=== PATIENT | male | born 1960 | race Caucasian/White ===

== ENCOUNTER 2017-11-18 19:00 | Emergency (ER) | payer BC, OTHER ==
[2017-11-18] MEDS ORDERED: Lidocaine 1% PF 5 ML VIAL ONE (19:30)
[2017-11-18] MEDS ORDERED: Bacitracin Zinc 1 Packet ONE (19:44)
[2017-11-18] MEDS ORDERED: Adacel (T-DAP) 0.5 ML VIAL ONE (20:12)
== END 2017-11-18 20:16 | disposition home or self-care (01) ==
LOC: SCSER 19:00
DX: S61.012A Laceration without foreign body of left thumb without damage to nail, initial encounter (principal); I10 Essential (primary) hypertension; Z23 Encounter for immunization; W27.0XXA Contact with workbench tool, initial encounter
CPT/HCPCS: 12001; 90471; 90715; J2001